=== PATIENT | female | born 1980 | race Caucasian/White ===

== ENCOUNTER 2021-02-28 09:08 | Day surgery (SDC) | payer OTHER ==
[~2021-02-28] VITALS: Ht 160 cm; Wt 119.9 kg
[~2021-02-28 09:08] MED LIST: NASACORT10.8 ML; OMEP20ER PO
--- NOTE | 2021-02-28 10:35 | NUR ---
Ambulatory in Day Surgery History, Chart, Medications and Allergies reviewed before start of procedure.Patient confirms NPO status and agrees with scheduled surgery. Patient reports completing Chlorhexadine shower X2 prior to admission to hospital.Surgical site prepped with 2% Chlorhexidine cloth wipe. Lungs clear T/O to Auscultation.
--- NOTE | 2021-02-28 15:12 | NUR ---
ARRIVED TO ROOM VIA DAVID, DROWSY, REPORTS PAIN IS "OK" AT THIS TIME, DENIES ANY NAUSEA, CONT. TO MONITOR VS AND ANY CHANGES.
--- NOTE | 2021-02-28 18:41 | NUR ---
SUMMARY VSS, MEDICATED FOR PAIN W/ FENTANYL ORDERED, TOLERATING SOME ICE CHIPS, C/O SLIGHT NAUSEA BUT BETTER W/ ICE CHIPS, REFUSED ANTIEMETIC, K PAD TO BACK FOR LOW BACK PAIN, PT REFUSED OOB TO CHAIR AT THIS TIME, PT STATES SHE WANTS TO WAIT A LITTLE BIT, NO ACUTE CHANGES THIS SHIFT.
[2021-03-01 04:23] LABS: BASOPHILS ABSOLUTE AUTO 0.02 K/mm3 (0.00-0.23); BASOPHILS PERCENT AUTO 0 % (0-2); EOSINOPHILS PERCENT AUTO 0 % (0-6); Hematocrit 38.6 % (33.0-51.0); Hemoglobin 12.8 g/dL (11.5-16.0); IMMATURE GRAN ABSOLUTE AUTO 0.09 K/mm3 (0.00-0.10); IMMATURE GRAN PERCENT AUTO 1 % (0-1); LYMPHOCYTES ABSOLUTE AUTO 1.11 K/mm3 (0.84-5.20); LYMPHOCYTES PERCENT AUTO 8 % (21-46); MONOCYTES ABSOLUTE AUTO 0.79 K/mm3 (0.16-1.47); MONOCYTES PERCENT AUTO 6 % (4-13); Mean Corpuscular HGB 29.5 pg (26.0-34.0); Mean Corpuscular HGB Conc 33.2 g/dL (31.5-36.5); Mean Corpuscular Volume 89 fL (80-100); Mean Platelet Volume 9.9 fL (9.1-12.4); NEUTROPHILS ABSOLUTE AUTO 11.69 K/mm3 (1.96-9.15); NEUTROPHILS PERCENT AUTO 85 % (41-73); Platelet Count 232 K/mm3 (150-400); RDW Coefficient Variation 12.2 % (11.7-14.2); RDW Standard Deviation 39.7 fL (35.1-46.3); Red Blood Cell Count 4.34 M/mm3 (3.80-5.20)
--- NOTE | 2021-03-01 06:13 | NUR ---
SHIFT SUMMARY POD 1 TOTAL ROBOTIC LAP HYSTER, A/O X4, VSS, TOLERATING PO, C/O INTERMITTENT NAUSEA NEAR START OF SHIFT W/ 2 SUBSEQUENT PERIODS OF EMISIS, MEDS GIVEN (SEE EMAR), PT REPORTS NO MORE NAUSEA SO FAR, PAIN WELL MANAGED, PT ABLE TO AMBULATE W/ MINIMAL ASSISTANCE MAKING SEVERAL TRIPS TO THE BATHROOM W/ SBA AND AT LEAST 1 TRIP INDEPENDENTLY. 1 DONYA PAD CHANGED, SCANT SPOTTING ON SECOND PAD. NO ACUTE EVENTS THIS SHIFT. CALL LIGHT IN REACH, WILL CTM AND REPORT TO ONCOMING DAY RN.
[2021-03-01] MEDS ORDERED: Percocet 5-3251 EACH PO (12:25)
[2021-03-01] MEDS ORDERED: PROM25 PO (12:26)
[2021-03-01] MEDS ORDERED: IBUP800 PO (12:26)
[2021-03-01] MEDS ORDERED: DOCU100 PO (12:27)
[2021-03-01] MEDS ORDERED: SIME80CH PO (12:28)
[2021-03-01] MEDS ORDERED: SENN187 PO (12:28)
[2021-03-01] MEDS ORDERED: DULCOLAX400 MG/5 M PO (12:28)
--- NOTE | 2021-03-01 12:45 | NUR ---
03/01/21 1245 Martha Banks VERIFICATIONS: EDIT CHART.
--- NOTE | 2021-03-01 13:02 | NUR ---
DISCHARGE PT EDUCATED ON AND RECEIVED PRINTED DISCHARGE INSTRUCTIONS AND VERB AN UNDERSTANDING. HARD RX + ABD BINDER GIVEN TO PT. IVS DC'D. PT GETTING DRESSED AND GATHERING PERSONAL BELONGINGS. PT WAITING FOR RIDE HOME.
== END 2021-03-01 15:15 | disposition home or self-care (01) ==
LOC: ORSCMMR 09:08 → ORD 10:30 → ORSCMMR 11:00 → SURS 14:37 → ORSCMMR 03-01 15:15
PROVIDERS: Obstetrics & Gynecology
PROC: 8E0W4CZ Robotic Assisted Procedure of Trunk Region, Percutaneous Endoscopic Approach (ICD-10-PCS; principal; 2021-02-28 11:00)
PROC: 0UT94ZZ Resection of Uterus, Percutaneous Endoscopic Approach (ICD-10-PCS; principal; 2021-02-28 11:00)
DX: D25.9 Leiomyoma of uterus, unspecified (principal); N80.0 Endometriosis of uterus; N94.89 Other specified conditions associated with female genital organs and menstrual cycle; N88.8 Other specified noninflammatory disorders of cervix uteri; N94.6 Dysmenorrhea, unspecified; K21.9 Gastro-esophageal reflux disease without esophagitis; E66.01 Morbid (severe) obesity due to excess calories; Z68.42 Body mass index [BMI] 45.0-49.9, adult; Z79.899 Other long term (current) drug therapy
CPT/HCPCS: 58570; S2900; 36415; 85025; 88307; A9270; J0690; J1100; J1885; J2250; J2550; J2704; J2765; J3010; J7120

== ENCOUNTER 2021-05-18 16:55 | Emergency (ER) | payer OTHER ==
[~2021-05-18] VITALS: Ht 160 cm; Wt 117.5 kg
[~2021-05-18 16:55] MED LIST changes: +DOCU100 PO; +DULCOLAX400 MG/5 M PO; +IBUP800 PO; +PROM25 PO; +Percocet 5-3251 EACH PO; +SENN187 PO; +SIME80CH PO
== END 2021-05-18 19:50 | disposition home or self-care (01) ==
LOC: ER 16:55
DX: U07.1 COVID-19 (principal); Z88.0 Allergy status to penicillin; Z88.5 Allergy status to narcotic agent; Z88.8 Allergy status to other drugs, medicaments and biological substances; Z79.899 Other long term (current) drug therapy
CPT/HCPCS: 99283-25; M0243; Q0243

== ENCOUNTER → 2022-05-06 | Outpatient (CLI) | payer OTHER | END | disposition home or self-care (01) | LOC: LAB SHORT 14:36 → LAB 14:36 | DX: N39.0 Urinary tract infection, site not specified (principal) | CPT/HCPCS: 87077; 87086; 87186 ==

== ENCOUNTER → 2022-08-01 | Outpatient (CLI) | payer OTHER ==
[2022-08-01 20:14] LABS: BASOPHILS ABSOLUTE AUTO 0.07 K/mm3 (0.00-0.23); BASOPHILS PERCENT AUTO 1 % (0-2); EOSINOPHILS ABSOLUTE AUTO 0.15 K/mm3 (0.00-0.68); EOSINOPHILS PERCENT AUTO 2 % (0-6); Hematocrit 41.4 % (33.0-51.0); Hemoglobin 13.7 g/dL (11.5-16.0); IMMATURE GRAN ABSOLUTE AUTO 0.02 K/mm3 (0.00-0.10); IMMATURE GRAN PERCENT AUTO 0 % (0-1); LYMPHOCYTES ABSOLUTE AUTO 2.43 K/mm3 (0.84-5.20); LYMPHOCYTES PERCENT AUTO 31 % (21-46); MONOCYTES ABSOLUTE AUTO 0.47 K/mm3 (0.16-1.47); MONOCYTES PERCENT AUTO 6 % (4-13); Mean Corpuscular HGB 29.4 pg (26.0-34.0); Mean Corpuscular HGB Conc 33.1 g/dL (31.5-36.5); Mean Corpuscular Volume 89 fL (80-100); Mean Platelet Volume 10.6 fL (9.1-12.4); NEUTROPHILS ABSOLUTE AUTO 4.75 K/mm3 (1.96-9.15); NEUTROPHILS PERCENT AUTO 60 % (41-73); Platelet Count 312 K/mm3 (150-400); RDW Coefficient Variation 11.9 % (11.7-14.2); RDW Standard Deviation 38.9 fL (35.1-46.3); Red Blood Cell Count 4.66 M/mm3 (3.80-5.20); White Blood Cell Count 7.89 K/mm3 (4.00-11.30)
[2022-08-01 20:30] LABS: Alanine Aminotransfer (ALT/SGP 53 U/L (12-78); Albumin, Blood 3.9 g/dL (3.4-5.0); Albumin/Globulin Ratio 1.2 (0.8-1.8); Alk Phos 71 U/L (50-136); Anion Gap 3 mmol/L (6-16); Aspartate Aminotrans (AST/SGOT 32 U/L (12-37); Bilirubin, Total 0.5 mg/dL (0.1-1.0); Blood Urea Nitrogen 15 mg/dL (8-24); Bun/Creatinine Ratio 21.3 (12.0-20.0); CHOL/HDL RATIO 3.9; CO2, Blood 28 mmol/L (21-32); Calcium, Blood 9.2 mg/dL (8.5-10.1); Chloride, Blood 107 mmol/L (98-108); Cholesterol 155 mg/dL (50-200); Globulin, Blood 3.3 g/dL (2.2-4.0); Glomerular Filtration Rate 111 (60-); Glucose, Blood 96 mg/dL (70-99); HDL Cholesterol 40 mg/dL (>39); LDL/HDL RATIO 2.5; Low Density Lipoprotein Chol 101 mg/dL (0-110); Potassium, Blood 3.7 mmol/L (3.5-5.5); Sodium, Blood 138 mmol/L (136-145); Total Protein, Blood 7.2 g/dL (6.4-8.2); Triglycerides 69 mg/dL (30-160); Very Low Density Lipoprot Chol 13 mg/dL (6-32)
== END | disposition home or self-care (01) ==
LOC: LAB SHORT 19:45
PROVIDERS: Family Medicine
DX: Z51.81 Encounter for therapeutic drug level monitoring (principal); Z79.899 Other long term (current) drug therapy
CPT/HCPCS: 80053; 80061; 85025